=== PATIENT | female | born 1970 ===

== ENCOUNTER 2017-09-09 18:41 | Emergency (ER) | payer OTHER ==
[~2017-09-09] VITALS: Ht 149.9 cm; Wt 49.9 kg
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
--- NOTE | 2017-09-09 19:54 | RADIOLOGY REPORT ---
EXAMINATION: XR LUMBOSACRAL SPINE CLINICAL INFORMATION: Low back pain COMPARISON: None TECHNIQUE: Frontal and lateral views of the lumbosacral spine FINDINGS: There are 5 nonrib-bearing lumbar type vertebral bodies. Vertebral body height is maintained. Sagittal alignment is maintained. There is minor multilevel endplate spurring without significant intervertebral disc height loss. There is multilevel facet arthropathy, most notable at L4-L5 and L5-S1. The pars interarticularis at L5 is not well assessed. The imaged SI joints and hips appear unremarkable. The bowel gas pattern is nonobstructive. IMPRESSION: Mild lumbar spondylosis without compression deformity. There is no spondylolisthesis or scoliosis. The pars interarticularis at L5 is not well assessed due to overlapping structures.
[2017-09-09] MEDS ORDERED: IBUPROFEN800 M1 PO (20:01)
[2017-09-09] MEDS ORDERED: CYCLOBENZAPRINE10 M1 PO (20:01)
[2017-09-09 20:34] VITALS: BP 92/58
== END 2017-09-09 20:43 ==
LOC: ERH 18:41
DX: S39.012A Strain of muscle, fascia and tendon of lower back, initial encounter (principal); V49.40XA Driver injured in collision with unspecified motor vehicles in traffic accident, initial encounter; Y92.9 Unspecified place or not applicable
CPT/HCPCS: 72100